=== PATIENT | male | born 1980 | race Caucasian/White ===

== ENCOUNTER 2020-06-14 14:38 | Emergency (ER) | payer OTHER ==
[~2020-06-14] VITALS: Ht 165.1 cm; Wt 83.9 kg
[2020-06-14 15:18] VITALS: BP 126/84
--- NOTE | 2020-06-14 15:37 | NUR ---
PT SEEN BY ELIZABETH NAIK. STABLE VITALS. PT IS DENIES SOB OR ANY DISCOMFORT. MEDICALLY CLEARED. D/C TO [facility] IN STABLE CONDITION.
== END 2020-06-14 15:39 | disposition home or self-care (01) ==
LOC: ER 14:44
DX: Z02.89 Encounter for other administrative examinations (principal); J45.909 Unspecified asthma, uncomplicated